=== PATIENT | female | born 1965 | race Caucasian/White ===

== ENCOUNTER → 2019-03-09 | Outpatient (CLI) | payer MEDICARE, OTHER ==
[~2019-03-09] MED LIST: ALPR0.5T PO; ARIP15TA3 PO; CALC-494 PO; CYAN500T2 PO; CYCL10TA2 PO; DOCU100T11 PO; DULO60CA6 PO; IOHEXOL 180 MG/ML 10 ML VIAL. ONE; LEVO75TA PO; MULT-55 PO; MULT1CAP33 PO; OMEGA KRILL OIL; OXYC1TAB15 PO; PRAM0.255 PO; PREG150C PO; TRAZ-118 PO; VERA240C2 PO; ZOLM5TAB13 PO; methylPREDNISolone ACETATE 40 MG/ML VIAL. ONE; methylPREDNISolone ACETATE 80 MG/ML VIAL. ONE
--- NOTE | 2019-03-09 22:20 | PAIN ---
DATE OF SERVICE: 03/09/2019 INITIAL CONSULTATION FOR PAIN CLINIC CHIEF COMPLAINT: Low back and right lower extremity pain. HISTORY OF PRESENT ILLNESS: This is a 53-year-old female who presents with history of pain in the low back, right lower extremity for many years, started when she was with her children many years ago and then, she had several falls over the last few years with pain increasing, worse over the past 1 year to 6 months. She has had physical therapy in the past, chiropractic treatment, which she is currently doing some counseling as well, and she has had some epidural injections in the past as well but reports good results with all of these, but nothing that has lasted significantly long periods of time. The patient reports her epidural injections were at least 5-6 years ago. The patient reports the pain now is in the low back bilaterally, across the low back and in the bilateral posterior gluteus and into the right lateral anterior thigh, anterior medial thigh, medial lower leg as well, becoming more constant, throbbing pain in the back, radiating pain into the leg with numbness and tingling, worse with activity, standing, walking, changing positions, better with sitting or lying down, does not awaken her from sleep generally, but occasionally, it may. The patient reports it does not affect her ability to ambulate most times, but she is not using any assistive devices as well. The patient reports it does affect her bowel and bladder control. Sometimes, she has some urgency but no loss of continence. The patient rates her disability rating from 0-10, 10 being the worst, is 7-8 on family home responsibilities and recreation, 6-8 on social activity, 8-9 with occupation and sexual behavior, 7 with self-care and 7 with support activities. The patient did have MRI scan of the lumbar spine showing degenerative changes, more significantly at L4-L5, but again only minimal bulging without significant foraminal stenosis. The patient has tried Percocet which she reports does decrease the pain, she has not had any for 3 weeks. No other modalities currently and again is doing stretching and strengthening exercises on her own. PAST MEDICAL HISTORY: Significant for anxiety, depression, hypertension, hypothyroidism and Ave's thyroiditis. PREVIOUS SURGERIES: Include x 2, weight loss surgery, cholecystectomy and rotator cuff repair on the left. CURRENT MEDICATIONS: Include Mirapex, Synthroid, trazodone, Cymbalta, Lyrica, calcium, verapamil, multivitamins, stool softener, Zomig, Abilify, Percocet, Xanax and cyclobenzaprine. ALLERGIES: THE PATIENT IS ALLERGIC TO SULFA, CODEINE AND PHENERGAN. FAMILY HISTORY: Significant for hypertension, hypothyroidism, cancers and depression. SOCIAL HISTORY: The patient does not drink alcohol, does not smoke and does not use any illegal, illicit or recreational drugs. Is , lives with her spouse, lives locally in [place], [place]. REVIEW OF SYSTEMS: The patient's review of systems is positive for those items mentioned in history of present illness. All systems reviewed and otherwise negative. It is complete, full and well documented on the patient's chart. PHYSICAL EXAMINATION: VITAL SIGNS: The patient's blood pressure is 135/77, pulse 85, respirations 18, temperature 98.1 degrees Fahrenheit, height is 5 feet 2 inches and weight is 176 pounds. GENERAL: The patient is awake, alert, oriented, appropriate, very pleasant demeanor. HEENT: Head shows normocephalic, atraumatic. Extraocular movements are intact and symmetrical. Oral cavity: Mucous membranes moist and pink. Dentition is intact. NECK: Shows anterior throat supple without palpable lymphadenopathy noted. Swallow reflex symmetrical. CHEST: Shows normal on inspection. Breath sounds clear to auscultation bilaterally. HEART: Shows S1, S2 clear. No murmurs auscultated. ABDOMEN: Soft, nontender and nondistended. No palpable organomegaly is noted. No rebound or guarding demonstrated. BACK: Shows spine grossly in the midline. Normal-appearing thoracic kyphosis, some minor exaggeration and some minor flattening of lumbar lordotic curvature. Lumbar paraspinous muscle shows symmetrical on inspection. On palpation, some moderate tenderness bilaterally diffusely without significant radiation. The patient's back shows no tenderness with palpation over the sacrum or sacroiliac regions or the spinous processes. The patient has good rotational motion of the lumbar spine, both laterally greater than 10 degrees right and left as well as extension being 10 degrees, forward flexion 45 degrees without significant pain reported. EXTREMITIES: The patient's lower extremities show deep tendon reflexes at 2+ in the patellar, 1+ tendo-calcaneus tendons. Motor exam is strong with mostly 4 on the scale of 5 on the right with dorsiflexion, extension and 5/5 on the left. Peripheral pulses are 1+ in posterior tibia. No peripheral edema is noted. Straight leg raise noted to be positive on the right about 40 degrees, decreased with knee flexion, left side is negative. Gaenslen's and Tyron's maneuvers are negative. Lower extremities are warm and dry to touch, equal in color and appearance. The patient is able to stand, stand on her toes without significant difficulty or loss of balance, walks with a normal-appearing gait for short distances in the office today without using any assistive devices. SKIN: The patient's skin shows warm and dry, good turgor. No edema. No sores, rashes or bruising throughout. IMPRESSION: This is a 53-year-old female with: 1. Long history of low back pain and right lower extremity pain in a radicular fashion. 2. MRI scan as noted. 3. History of Ave's thyroiditis. PLAN: Options were discussed with the patient and the patient's spouse who accompanied her to her visit today including conservative medical management, physical therapies, interventional techniques and she elected to pursue interventional techniques, as she is currently doing some stretching and strengthening on her own and exercises. We discussed a lumbar epidural steroid injection using the description as well as anatomical models to describe the procedure. Risks were then discussed including, but not limited to bleeding, infection, possibility of epidural hematoma, subsequent neurologic compromise, dural puncture, headaches, spinal cord and/or nerve damage, side effects of steroid medication and poor results regarding pain control. The patient understands and wishes to proceed. The patient will return to the clinic in approximately 2 weeks for followup, counseled on return appointment, activity level and side effects to be aware of. DIAGNOSES: Lumbar radiculopathy with lumbar degenerative disk disease. PROCEDURE: Lumbar epidural steroid injection, translaminar approach at L4-L5 level using C-arm fluoroscopic guidance under sterile prep and drape using local anesthetic. MEDICATION INJECTED: Total of 120 mg Depo-Medrol plus 10 mL of preservative-free normal saline and 2 mL of contrast. CONDITION AT DISCHARGE: Stable. The patient tolerated the procedure well, had no complications. ADRIANA LADD MD DR: ZAINA/mg JOB#: [id number] / [id number] JIMMY Newton DO
== END ==
LOC: PNCL 09:15
PROVIDERS: ATTEND Anesthesiology
DX: M51.16 Intervertebral disc disorders with radiculopathy, lumbar region (principal); F41.9 Anxiety disorder, unspecified; F32.9 Major depressive disorder, single episode, unspecified; I10 Essential (primary) hypertension; E03.9 Hypothyroidism, unspecified; Z90.49 Acquired absence of other specified parts of digestive tract; Z98.890 Other specified postprocedural states; Z88.1 Allergy status to other antibiotic agents; Z88.5 Allergy status to narcotic agent; Z88.8 Allergy status to other drugs, medicaments and biological substances
CPT/HCPCS: 62323; J1030; J1040; Q9965

== ENCOUNTER → 2019-04-04 | Outpatient (CLI) | payer MEDICARE, OTHER ==
[~2019-04-04] MED LIST changes: -CYAN500T2 PO; +CYAN500T52 PO
--- NOTE | 2019-04-04 10:37 | PAIN ---
DATE OF SERVICE: 04/04/2019 PROGRESS NOTE FOR PAIN CLINIC DIAGNOSES: Lumbar radiculopathy with lumbar degenerative disk disease. HISTORY OF PRESENT ILLNESS: The patient is a 53-year-old female who returns for followup status post lumbar epidural steroid injection x 1. The patient reports about 25% improvement in the low back, bilateral lower extremity, mostly in the right side. The patient reports still some pain in the posterior gluteus, posterolateral thigh, lateral anterior thigh, anterior medial thigh, medial lower leg on the right as well with walking, standing, changing positions, although initially she was doing much better with distance walking, household activities, work activities, sleeping better at night. Reports no new motor or sensory deficits, no new bowel or bladder incontinence. The patient reports the pain is a 9 on a scale of 10 at its worst in the past week, 6 on average, 4 at its least and is a 6 today. The patient reports it is aching type, shooting in the low back and right leg. PHYSICAL EXAMINATION: VITAL SIGNS: The patient's blood pressure 127/97, pulse 96, respirations 18, temperature 97.9 degrees Fahrenheit, height is 5 feet 2 inches, weight is 192 pounds. GENERAL: The patient is awake, alert, oriented, appropriate, very pleasant demeanor. HEENT: Head is normocephalic, atraumatic. Extraocular movements are intact and symmetrical. Oral cavity; mucous membranes moist and pink. Dentition is intact. NECK: Shows anterior throat supple without palpable lymphadenopathy noted. Swallow reflex symmetrical. CHEST: Shows normal on inspection. Breath sounds clear to auscultation bilaterally. HEART: Shows S1, S2 clear. No murmurs auscultated. ABDOMEN: Soft, nontender, nondistended. No palpable organomegaly is noted. No rebound or guarding demonstrated. BACK: Shows spine grossly in the midline. Normal appearing thoracic kyphosis and lumbar lordotic curvature. Lumbar paraspinous muscle shows symmetrical on inspection, on palpation shows some moderate tenderness diffusely, but only diffusely without radiation. EXTREMITIES: The patient's lower extremities show deep tendon reflexes at 2+ in the patellar, 1+ tendo-calcaneus tendons. Motor exam is strong with 5/5 dorsiflexion, extension, quadriceps and hamstring flexion on the left and 4/5 on the right. PLAN: Options were discussed with the patient. The patient's old chart was reviewed as her current medication regimen updated. Current review of systems updated today as well. We will proceed with a second in the series of lumbar epidural steroid injection today with fluoroscopic guidance. Risks were again discussed including, but not limited to bleeding, infection, possibility of epidural hematoma, subsequent neurological compromise, dural puncture, headaches, spinal cord and/or nerve damage, side effects of steroid medication and poor results regarding pain control. The patient understands and wished to proceed. The patient will return to clinic in approximately 2 weeks for followup. She was counseled on return appointment, activity level and side effects to be aware of. DIAGNOSIS: Lumbar radiculopathy with lumbar degenerative disk disease. PROCEDURE: Lumbar epidural steroid injection, translaminar approach at L4-L5 level using C-arm fluoroscopic guidance under sterile prep and drape, using local anesthetic. MEDICATION INJECTED: The patient received a total of 120 mg Depo-Medrol plus 10 mL of preservative-free normal saline and 2 mL of contrast. CONDITION AT DISCHARGE: Stable. The patient tolerated the procedure well, had no complications. ADRIANA LADD MD DR: ZAINA/mg JOB#: [id number] / [id number]
== END ==
LOC: PNCL 08:14
PROVIDERS: ATTEND Anesthesiology
DX: M51.16 Intervertebral disc disorders with radiculopathy, lumbar region (principal)
CPT/HCPCS: 62323; J1030; J1040; Q9965

== ENCOUNTER → 2019-05-02 | Outpatient (CLI) | payer MEDICARE, OTHER ==
--- NOTE | 2019-05-02 12:21 | PAIN ---
DATE OF SERVICE: 05/02/2019 PROGRESS NOTE FOR PAIN CLINIC DIAGNOSES: Lumbar radiculopathy with lumbar degenerative disk disease. HISTORY OF PRESENT ILLNESS: The patient is a 53-year-old female who returns for followup status post lumbar epidural steroid injections x 2. The patient reports good relief about 95%-100%, only lasting about 2-1/2 weeks. The patient reports that the pain began to return in the low back, more on the right side than the left, radiating to the right hip and thigh, becomes sharp at times, worse with prolonged walking. The patient did take an hour and a half walk, she said several days ago which exacerbated the pain. Other than that, she was doing better. The patient reports it still awakens her from sleep about every 5-6 hours, but she was increasing her household activities with greater ease and comfort, bending with better comfort and mobility and just generally moving with greater ease altogether. The patient reports her pain is an 8 on a scale of 10 at its worst in the past week, 5 on average, 4 at its least and is a 5 today. The patient reports it is sharp, severe at times with walking. No new motor or sensory deficits, no new bowel or bladder incontinence or other complaints. PHYSICAL EXAMINATION: VITAL SIGNS: The patient's blood pressure 126/89, pulse 75, respirations 16, temperature 97.9 degrees Fahrenheit, weight is 195 pounds. GENERAL: The patient is awake, alert, oriented, appropriate, very pleasant demeanor. HEENT: Shows normocephalic, atraumatic. Extraocular movements are intact and symmetrical. Oral cavity: Mucous membranes moist and pink. Dentition is intact. NECK: Shows anterior throat supple. CHEST: Shows normal on inspection. Breath sounds are clear bilaterally. HEART: Shows S1, S2 clear. ABDOMEN: Obese, soft, nontender, nondistended. BACK: Shows spine grossly in the midline. Normal appearing thoracic kyphosis and minor flattening of lumbar lordotic curvature. Lumbar paraspinous muscle shows symmetrical on inspection, with palpation shows some moderate tenderness but only in the low lumbar distribution without radiation. The patient has good rotational motion of lumbar spine, both laterally as well as extension and flexion without significant difficulty. EXTREMITIES: Lower extremities show deep tendon reflexes at 2+/4 in the patellar, 1+ in the tendo calcaneus tendons. Motor exam is strong with 5/5 dorsiflexion, extension on the left and 4/5 on the right. Peripheral pulses are 1+. No peripheral edema is noted. Options were discussed with the patient. The patient's old chart was reviewed as her current medication regimen updated. Current review of systems updated today as well. We will proceed with third in the series of lumbar epidural steroid injection today with fluoroscopic guidance. Risks were again discussed including, but not limited to bleeding, infection, possibility of epidural hematoma, subsequent neurologic compromise, dural puncture, headaches, spinal cord and/or nerve damage, side effects of steroid medication and poor results regarding pain control. The patient understands and wished to proceed. The patient will return to clinic in approximately 2 weeks for followup. She was counseled on return appointment, activity level and side effects to be aware of. DIAGNOSES: Lumbar radiculopathy with lumbar degenerative disk disease. PROCEDURE: Lumbar epidural steroid injection, translaminar approach at L4-L5 level using C-arm fluoroscopic guidance under sterile prep and drape using local anesthetic. MEDICATION INJECTED: A total of 120 mg of Depo-Medrol plus 10 mL of preservative-free normal saline and 2 mL of contrast. CONDITION AT DISCHARGE: Stable. The patient tolerated the procedure well, had no complications. ADRIANA LADD MD DR: ZAINA/mg JOB#: [id number] / [id number]
== END ==
LOC: PNCL 10:03
PROVIDERS: ATTEND Anesthesiology
DX: M51.16 Intervertebral disc disorders with radiculopathy, lumbar region (principal)
CPT/HCPCS: 62323; J1030; J1040; Q9965